=== PATIENT | male | born 1975 | race Caucasian/White ===

== ENCOUNTER 2019-03-01 11:50 | Emergency (ER) | payer MEDICAID, OTHER ==
[~2019-03-01] VITALS: Ht 188 cm; Wt 104.5 kg
[~2019-03-01 11:50] MED LIST: NO HOME MEDS
[2019-03-01 11:52] VITALS: BP 140/96
[2019-03-01 12:47] LABS: BASOPHILS # (AUTO) 0.1 X10'3 (0-0.2); EOSINOPHILS # (AUTO) 0.3 X10'3 (0-0.9); EOSINOPHILS % (AUTO) 3.1 % (0-6); HEMATOCRIT 42.1 % (42.0-52.0); HEMOGLOBIN 14.1 g/dl (14.0-17.9); LYMPHOCYTES % (AUTO) 22.7 % (21-51); MEAN CORPUSCULAR HEMOGLOBIN 28.6 PG (27.0-31.0); MEAN CORPUSCULAR HGB CONC 33.6 g/dL (33.0-36.5); MEAN CORPUSCULAR VOLUME 85.3 FL (78-98); MEAN PLATELET VOLUME 8.3 FL (7.4-10.4); MONOCYTES # (AUTO) 0.8 X10'3 (0-0.9); MONOCYTES % (AUTO) 9.4 % (2-12); NEUTROPHILS # (AUTO) 5.6 X10'3 (1.8-7.7); NEUTROPHILS % (AUTO) 63.8 % (42-75); PLATELET COUNT 292 X10'3 (140-440); RED BLOOD COUNT 4.93 X10'6 (4.70-6.10); RED CELL DISTRIBUTION WIDTH 13.7 % (11.5-14.5); WHITE BLOOD COUNT 8.8 X10'3 (4.5-11.0)
[2019-03-01 13:03] LABS: ALANINE AMINOTRANSFERASE 36 U/L (12-78); ALBUMIN 3.6 G/DL (3.4-5.0); ALKALINE PHOSPHATASE 73 IU/L (46-116); ANION GAP 8 (8-16); ASPARTATE AMINO TRANSFERASE 22 U/L (10-37); BILIRUBIN,TOTAL 0.2 MG/DL (0.1-1.0); BLOOD UREA NITROGEN 18 MG/DL (7-18); BUN/CREATININE RATIO 19.8 (5.4-32.0); CALCIUM 8.9 MG/DL (8.5-10.1); CHLORIDE 107 MMOL/L (99-107); CREATININE 0.91 MG/DL (0.60-1.10); GLUCOSE 112 MG/DL (70-104); POTASSIUM 3.8 MMOL/L (3.5-5.1); SODIUM 142 MMOL/L (135-145); TOTAL CARBON DIOXIDE 27.4 MMOL/L (24-32); TOTAL PROTEIN 7.3 G/DL (6.4-8.2); eGFR > 90 ML/MIN
== END 2019-03-01 13:30 ==
LOC: ER 11:50
DX: F15.10 Other stimulant abuse, uncomplicated (principal); F11.10 Opioid abuse, uncomplicated; R07.89 Other chest pain; R42 Dizziness and giddiness; R11.2 Nausea with vomiting, unspecified; Z86.14 Personal history of Methicillin resistant Staphylococcus aureus infection
CPT/HCPCS: 36415; 80053; 84484; 85025; 93005; 99284

== ENCOUNTER 2019-11-08 00:31 | Emergency (ER) | payer MEDICAID, OTHER ==
[~2019-11-08] VITALS: Ht 188 cm; Wt 104.0 kg
[2019-11-08] MEDS ORDERED: SULF1TAB49 PO (01:06)
[2019-11-08] MEDS ORDERED: CEPH500C5 PO (01:06)
[2019-11-08] MEDS ORDERED: TETanus/Pertussis (Acell)/Diphther VAC/PF (Tdap-Adult) 0.5ml syringe IMVAC ONE (01:10)
[2019-11-08 01:36] VITALS: BP 129/62
== END 2019-11-08 01:30 | disposition home or self-care (01) ==
LOC: ER 00:32
DX: L02.91 Cutaneous abscess, unspecified (principal); F15.90 Other stimulant use, unspecified, uncomplicated; F11.90 Opioid use, unspecified, uncomplicated; Z86.14 Personal history of Methicillin resistant Staphylococcus aureus infection; Z79.899 Other long term (current) drug therapy
CPT/HCPCS: 90471; 90715; 99283

== ENCOUNTER 2025-06-01 11:14 | Emergency (ER) | payer MEDICAID ==
[~2025-06-01] VITALS: Ht 185.4 cm; Wt 110.3 kg
[2025-06-01 11:19] VITALS: TEMP 96.9
[2025-06-01] MEDS ORDERED: IBUP-864 PO (12:31)
[2025-06-01] MEDS ORDERED: SULF1TAB49 PO (12:31)
[2025-06-01] MEDS ORDERED: BACI28.42 TOP (12:31)
--- NOTE | 2025-06-01 12:31 | Physician Documentation ---
History of Present Illness ~ Chief Complaint: Bite-insect Stated Complaint: SPIDER BITE Time Seen by MD: 12:14 Primary Medical Doctor: no pmd Source: patient Mode of Arrival: POV Exam Limitations: no limitations HPI 50-year-old male with wound to left 5th finger which he states is from a bug bite. Patient endorses debriding it himself. Patient is requesting antibiotic for infection. Patient states this occurred approximately 3 days ago. Tetanus within 5 years?: No Medication Reconciliation Allergies: Coded Allergies: No Known Allergies (Unverified , 06/01/25) Miscellaneous Medications Home Med List (No Home Medications), (Reported) Past Medical History Past Medical History: Cellulitis, MRSA Abscess Past Surgical History: no surgical history Alcohol Use: None Drug Use: methamphetamine, heroin, other Lives In: Home Review of Systems All Other Systems at this time: Reviewed and Negative Integumentary: Reports: see HPI Physical Exam Vital Signs: RN Vital Signs have been reviewed: Yes, Temperature: 96.9, Source: Temporal, Heart Rate: 80, Respiratory Rate: 16, BP: 122/75, Pulse Oximetry: 96, Weight: 110.300 Oxygen Flow Rate: 0 Physical Exam General: Alert, no apparent distress. HEENT: moist mucous membranes. Neck: Full range of motion. Respiratory: No respiratory distress speaking in full sentences Chest: No accessory muscle use. Cardiovascular: Appears well perfused Neurologic: Oriented x4. Psychiatric: Normal mood and affect. Skin: Partial-thickness wound approximately 2 cm x 4 cm surrounding the medial aspect of the left 5th finger with discharge and sloughing. Maceration surrounding the wound bed. Finger is moderately swollen with erythema and warmth extending through the hand and up to the wrist. Progress Results/Orders Results/Orders Vital Signs 06/01/25 11:19 Temp 96.9 Pulse 80 Resp 16 B/P (MAP) 122/75 Pulse Ox 96 O2 Flow Rate 0 Medical Decision Making Findings Significant infected wound to the left 5th finger discussed with patient getting labs and images to evaluate as it does appear to be infected, an older wound concerned for osteo, potentially requiring IV antibiotics. Patient is refusing workup at this time. Patient desires to be discharged and he wants to try p.o. antibiotics. Patient is aware of the risks to refusing workup and images up into and including , or potential amputation needed for the left 5th finger or even hand. Patient verbalized understanding and is aware at this time and still desires to discharge on antibiotics 1st Departure Time of Disposition: 12:29 Disposition: 07 LEFT AGAINST MEDICAL ADVICE Impression: Primary Impression: Insect bites Additional Impression: Cellulitis Condition: Stable Discharge Instructions: Insect Bite, Adult, [id number] Additional Instructions: Take antibiotics as prescribed for any reason that this wound does not look improved in the next 24 hours you do need to return to the ER for further workup including labs and images. Follow up with primary care on Wednesday Referrals: NO PRIMARY CARE PROVIDER (PCP) Prescriptions Sulfamethoxazole/Trimethoprim (Bactrim Ds Tablet) 800 Mg-160 Mg Tablet 1 TAB PO Q12H for 10 Days, #20 TAB Prov: KAYLEN BENITO NP 06/01/25 Bacitracin (Bacitracin) 500 Unit/Gram Oint...g. 1 APPLIC TOP Q12H for 7 Days, #30 GM 0 Refills apply to affected area(s) Prov: KAYLEN BENITO NP 06/01/25 Ibuprofen (Ibu) 800 Mg Tablet 1 TAB PO Q8H for 7 Days, #21 TAB 0 Refills Prov: KAYLEN BENITO NP 06/01/25 Education Educated: Patient Educated regarding: diagnosis, treatment, need for follow up Signature Scribe Signature: No scribe Attestation: The note accurately reflects work and decisions made by me.Kaylen TRAN 06/01/25 12:31 KAYLEN BENITO NP Jun 01, 2025 12:31
[2025-06-01] MEDS: sulfamethoxazole/trimethoprim DS (800/160mg) tablet PO ONE ×2 (12:35→14:06)
[2025-06-01] MEDS: bacitracin 15gm ointment TP ONE ×2 (12:35→14:07)
[2025-06-01 14:13] VITALS: BP 127/80; PULSE 72; RESP 16; O2SAT 98
== END 2025-06-01 14:17 | disposition left against medical advice (07) ==
LOC: ER 11:15
DX: S60.467A Insect bite (nonvenomous) of left little finger, initial encounter (principal); L03.012 Cellulitis of left finger; F15.90 Other stimulant use, unspecified, uncomplicated; F11.90 Opioid use, unspecified, uncomplicated; F19.90 Other psychoactive substance use, unspecified, uncomplicated; Z86.14 Personal history of Methicillin resistant Staphylococcus aureus infection; W57.XXXA Bitten or stung by nonvenomous insect and other nonvenomous arthropods, initial encounter; Y93.89 Activity, other specified; Y92.89 Other specified places as the place of occurrence of the external cause; Y99.8 Other external cause status
CPT/HCPCS: 99284